=== PATIENT | female | born 1985 | race Caucasian/White ===

== ENCOUNTER 2017-01-03 12:57 | Emergency (ER) | payer SELFPAY ==
[~2017-01-03 12:57] MED LIST: FIBER SELECT GUMMIES PR; HYCET1 ML PO; IBUPROFEN600 MG PO; PERCOCET1 TA1 PO
--- NOTE | 2017-01-03 14:26 | DIAGNOSTIC IMAGING REPORT ---
PROCEDURE: XR SHOULDER 2 OR MORE VW-RIGHT INDICATION: TRAUMA/INJURY TECHNIQUE: Four views. COMPARISON: None. FINDINGS: There is a type 1, AC joint separation. In the shoulder there is internal and external rotation without fracture or dislocation. IMPRESSION: 1. Acromioclavicular joint separation, type 1
--- NOTE | 2017-01-03 14:34 | ED NURSING NOTES ---
Clinical Report - Nurses [facility] [address] [place] [address] 01/03/2017 12:58 Patient: BRIJESH GABRIEL TRIAGE Triage time 1300. Acuity: LEVEL 5. Chief Complaint: INJURY TO RIGHT SHOULDER. Alert. No acute distress. --13:15 Jamaica Vasquez 13:11 01/03/17. BP: 135/68. HR: 63. RR: 18. O2 saturation: 100%. Temp: 98.4 F. Pain level now 04/28. --13:15 Jamaica Vasquez. Weight: 113.3 kg. Height/Length: 65 inches. BMI: 41.6. --13:11 Jamaica Vasquez. Medications None. --13:13 Jamaica Vasquez. Allergies Hydrocodone. --13:13 Jamaica Vasquez. History Arrived by private vehicle. Historian: patient. Accompanied by family. This occurred (1 weeks ago). Mechanism of injury: fell. Treatment KIER DRIER: Ice and took ibuprofen. SOCIAL HX: Current every day heavy tobacco smoker, start date 1998 (cigarette)- 1 pack per day. Occasional alcohol use. History of drug use: marijuana. --13:15 Jamaica Vasquez. PROBLEMS: Biliary Colic. Cholelithiasis. Urinary Calculi. Gallstone(s). Endometriosis. Substance Abuse. Pelvic Pain. Hypertension. Strep Throat. Nephrolithiasis. Uterine Fibroid. Dental Caries. LNMP - Last Normal Menstrual Period. --13:14 Jmaaica Vasquez. ADDITIONAL SURGERIES: . Hysterectomy. Tubal Ligation. --13:14 Jamaica Vasquez. Interventions ID band on patient. To treatment room. --13:15 Jamaica Vasquez. PHYSICAL ASSESSMENT Ambulatory to room. GENERAL / NEURO / PSYCH: Oriented X 4. Alert. Appears in no acute distress. EXTREMITIES: Capillary refill is less than 2 seconds in the extremities. Extremity pulses are within normal limits. Extremities exhibit normal ROM. Neuro-vascular status intact to the extremity. Right shoulder: tenderness. Limited ROM due to pain (sling on from home). SKIN: Skin intact. Skin is warm and dry. --13:16 Jamaica Vasquez. DISPOSITION / DISCHARGE Departure time: 1440. Condition at departure: unchanged and stable. No learning barriers present. Discharge instructions provided and reviewed with the patient. Reviewed medication(s). Patient verbalized understanding. Written instructions provided in Lao. The patient was discharged by the nurse practitioner. She was discharged home and accompanied by spouse. She left the Emergency Department ambulatory and via private vehicle. Spouse driving. --14:42 Jamaica Vasquez 14:40 01/03/17. BP: 125/74. HR: 84. RR: 16. O2 saturation: 100%. Pain level now 05/28. --14:42 Jamaica Vasquez. Locked/Released at 01/03/2017 14:43 by Jamaica Vasquez,
--- NOTE | 2017-01-03 14:34 | ED ORDER SUMMARY ---
..... Patient: BRIJESH GABRIEL OrderSheet [facility] VisitID: [id number] [address] [place] [address] 31y, F Registration Date/Time: 01/03/2017 ORDER SHEET Weight: 113.3 kg Allergies: Hydrocodone GENERAL ORDERS: Shoulder 2V or more Right Urgent (13:33 01/03/2017 HBivens A.R.N.P.) (Ack 13:38 LNations ER Tech1) (13:43 LNations ER Tech1) MEDICATION ORDERS: IV FLUIDS: ORDER SHEET NOTES: [Electronically signed by Jamaica Vasquez (14:43 01/03/2017)] [Electronically signed by Stayc Rasmussen A.R.N.P. (16:12 01/03/2017)] [Electronically locked/signed by Jamaica Vasquez (14:43 01/03/2017)]
--- NOTE | 2017-01-03 14:34 | ED CLINICAL REPORT ---
Clinical Report - Physicians/Mid Levels [address] [place] [address] 01/03/2017 12:58 Patient: BRIJESH GABRIEL Time Seen: 13:13; initial patient contact, initial documentation, patient care assumed. Arrived- By private vehicle. Historian- patient. HISTORY OF PRESENT ILLNESS Chief Complaint: FALL. Location of injuries- right shoulder. The injury occurred about 1 weeks ago. Fell. The patient complains of moderate pain. No blow to the head, neck pain, loss of consciousness or seizure. Not dazed. (shoulder is popping and clicking with use/movement, taking ibuprofen for pain). REVIEW OF SYSTEMS No numbness, chest pain, difficulty breathing, weakness or abdominal pain. No laceration. She has no pain on weight bearing. All systems otherwise negative, except as recorded above. PAST HISTORY See nurses notes. PROBLEMS: Biliary Colic. Cholelithiasis. Urinary Calculi. Gallstone(s). Endometriosis. Substance Abuse. Pelvic Pain. Hypertension. Strep Throat. Nephrolithiasis. Uterine Fibroid. Dental Caries. LNMP - Last Normal Menstrual Period. --13:14 Jamaica Vasquez. ADDITIONAL SURGERIES: . Hysterectomy. Tubal Ligation. --13:14 Jamaica Vasquez. SOCIAL HISTORY Heavy tobacco smoker. Occasional alcohol use. History of occasional drug use: marijuana. No recent travel. Is a local resident. FAMILY HISTORY No significant family medical history. ADDITIONAL NOTES The nursing notes have been reviewed with agreement regarding the chief complaint, HPI, ROS, PMH and patient medications and allergies. PHYSICAL EXAM Vital Signs: 01/03/2017 13:11 BP: 135/68. HR: 63. RR: 18. O2 saturation: 100%. Temp: 98.4 F. Have been reviewed as normal and appear to be correct. Appearance: Alert. Oriented X3. No acute distress. Head: Head non-tender. No swelling of head. Eyes: Pupils equal, round and reactive to light. EOM intact. ENT: No dental injury. Pharynx normal. Neck: Painless ROM. Non-tender. Respiratory: Chest nontender. Back: No tenderness. ROM normal. Skin: Skin intact. Skin warm and dry. Normal skin color. Normal skin turgor. Extremities: Abnormal inspection. Extremities not atraumatic. Right shoulder: mild tenderness. Neurovascular intact distally. (mild tenderness everywhere I palpate shoulder, could not localize injury spot). No erythema, swelling, laceration, abrasion or ecchymosis. No puncture wound, foreign body or deformity. No joint effusion or limitation in ROM. Pelvis stable. No lower extremity edema. Neuro: Oriented X 3. No motor deficit. No sensory deficit. LABS, X-RAYS, AND EKG X-Rays: Right shoulder. Rt Shoulder X-ray: (IMPRESSION: 1. Acromioclavicular joint separation, type 1 Electronically Final signed by:Micha Aguilar MD 01/03/2017 2:30:31 PM). The X-rays were interpreted by the radiologist and contemporaneously by me. Interpretation time: 14:32. PROGRESS AND PROCEDURES Course of Care: pt has brief kathy, nothing alarming, see report for full details. Patient counseled in person regarding the patient's stable condition, test results and diagnosis. 14:32. Differential Diagnosis: I considered fracture, stress fracture, sprain, hyperextension, dislocation, rotator cuff tear, acromioclavicular separation, soft tissue injury, tendonitis and bursitis as a possible cause of upper extremity pain in this patient. This is a partial list of diagnoses considered. Above considerations are based on history, physical exam and X-Ray data. Differential diagnosis was discussed with patient. Disposition: Discharged home in good and unchanged condition (14:34). Condition: good and stable. CLINICAL IMPRESSION Muscle strain of the right rotator cuff at the shoulder. Type I separation of the right AC joint. No displacement of the right AC joint. Fall on same level by slipping. INSTRUCTIONS Warnings: GENERAL WARNINGS: Return or contact your physician immediately if your condition worsens or changes unexpectedly, if not improving as expected, or if other problems arise. SPECIFICALLY, return if you develop numbness or incontinence of feces (loss of bowel control) or urine (loss of bladder control). Prescription Medications: Naproxen 500 mg tablets: take 1 orally every 12 hours as needed for pain. Dispense twenty (20). No refills. Understanding of the discharge instructions verbalized by patient. Follow-up with: Francisco Damon MD, Orthopedic Surgeon, , [id number], , [place], [id number] Follow up in about one week as needed. Call for an appointment. Summary of care provided to patient. (Electronically signed by Stacy Rasmussen A.R.NJosiah 01/03/2017 16:12)
--- NOTE | 2017-01-03 14:34 | ED CLINICAL REPORT ---
Clinical Report - Physicians/Mid Levels [facility] [address] [place] [address] 01/03/2017 12:58 Patient: BRIJESH GABRIEL Time Seen: 13:13; initial patient contact, initial documentation, patient care assumed. Arrived- By private vehicle. Historian- patient. HISTORY OF PRESENT ILLNESS Chief Complaint: FALL. Location of injuries- right shoulder. The injury occurred about 1 weeks ago. Fell. The patient complains of moderate pain. No blow to the head, neck pain, loss of consciousness or seizure. Not dazed. (shoulder is popping and clicking with use/movement, taking ibuprofen for pain). REVIEW OF SYSTEMS No numbness, chest pain, difficulty breathing, weakness or abdominal pain. No laceration. She has no pain on weight bearing. All systems otherwise negative, except as recorded above. PAST HISTORY See nurses notes. PROBLEMS: Biliary Colic. Cholelithiasis. Urinary Calculi. Gallstone(s). Endometriosis. Substance Abuse. Pelvic Pain. Hypertension. Strep Throat. Nephrolithiasis. Uterine Fibroid. Dental Caries. LNMP - Last Normal Menstrual Period. --13:14 Jamaica Vasquez. ADDITIONAL SURGERIES: . Hysterectomy. Tubal Ligation. --13:14 Jamaica Vasquez. SOCIAL HISTORY Heavy tobacco smoker. Occasional alcohol use. History of occasional drug use: marijuana. No recent travel. Is a local resident. FAMILY HISTORY No significant family medical history. ADDITIONAL NOTES The nursing notes have been reviewed with agreement regarding the chief complaint, HPI, ROS, PMH and patient medications and allergies. PHYSICAL EXAM Vital Signs: 01/03/2017 13:11 BP: 135/68. HR: 63. RR: 18. O2 saturation: 100%. Temp: 98.4 F. Have been reviewed as normal and appear to be correct. Appearance: Alert. Oriented X3. No acute distress. Head: Head non-tender. No swelling of head. Eyes: Pupils equal, round and reactive to light. EOM intact. ENT: No dental injury. Pharynx normal. Neck: Painless ROM. Non-tender. Respiratory: Chest nontender. Back: No tenderness. ROM normal. Skin: Skin intact. Skin warm and dry. Normal skin color. Normal skin turgor. Extremities: Abnormal inspection. Extremities not atraumatic. Right shoulder: mild tenderness. Neurovascular intact distally. (mild tenderness everywhere I palpate shoulder, could not localize injury spot). No erythema, swelling, laceration, abrasion or ecchymosis. No puncture wound, foreign body or deformity. No joint effusion or limitation in ROM. Pelvis stable. No lower extremity edema. Neuro: Oriented X 3. No motor deficit. No sensory deficit. LABS, X-RAYS, AND EKG X-Rays: Right shoulder. Rt Shoulder X-ray: (IMPRESSION: 1. Acromioclavicular joint separation, type 1 Electronically Final signed by:Micha Aguilar MD 01/03/2017 2:30:31 PM). The X-rays were interpreted by the radiologist and contemporaneously by me. Interpretation time: 14:32. PROGRESS AND PROCEDURES Course of Care: pt has brief kathy, nothing alarming, see report for full details. Patient counseled in person regarding the patient's stable condition, test results and diagnosis. 14:32. Differential Diagnosis: I considered fracture, stress fracture, sprain, hyperextension, dislocation, rotator cuff tear, acromioclavicular separation, soft tissue injury, tendonitis and bursitis as a possible cause of upper extremity pain in this patient. This is a partial list of diagnoses considered. Above considerations are based on history, physical exam and X-Ray data. Differential diagnosis was discussed with patient. Disposition: Discharged home in good and unchanged condition (14:34). Condition: good and stable. CLINICAL IMPRESSION Muscle strain of the right rotator cuff at the shoulder. Type I separation of the right AC joint. No displacement of the right AC joint. Fall on same level by slipping. INSTRUCTIONS Warnings: GENERAL WARNINGS: Return or contact your physician immediately if your condition worsens or changes unexpectedly, if not improving as expected, or if other problems arise. SPECIFICALLY, return if you develop numbness or incontinence of feces (loss of bowel control) or urine (loss of bladder control). Prescription Medications: Naproxen 500 mg tablets: take 1 orally every 12 hours as needed for pain. Dispense twenty (20). No refills. Understanding of the discharge instructions verbalized by patient. Follow-up with: Francisco Damon MD, Orthopedic Surgeon, , [id number], , [place], [phone] Follow up in about one week as needed. Call for an appointment. Summary of care provided to patient. (Electronically signed by Stacy Rasmussen A.R.NJosiah 01/03/2017 16:12)
--- NOTE | 2017-01-03 14:34 | ED ORDER SUMMARY ---
..... Patient: BRIJESH GABRIEL OrderSheet [facility] VisitID: [id number] [address] [place] [address] 31y, F Registration Date/Time: 01/03/2017 ORDER SHEET Weight: 113.3 kg Allergies: Hydrocodone GENERAL ORDERS: Shoulder 2V or more Right Urgent (13:33 01/03/2017 HBivens A.R.N.P.) (Ack 13:38 LNations ER Tech1) (13:43 LNations ER Tech1) MEDICATION ORDERS: IV FLUIDS: ORDER SHEET NOTES: [Electronically signed by Jamaica Vasquez (14:43 01/03/2017)] [Electronically signed by Stacy Rasmussen A.R.N.P. (16:12 01/03/2017)] [Electronically locked/signed by Jamaica Vasquez (14:43 01/03/2017)]
--- NOTE | 2017-01-03 14:34 | ED NURSING NOTES ---
Clinical Report - Nurses [facility] [address] [place] [address] 01/03/2017 12:58 Patient: BRIJESH GABRIEL TRIAGE Triage time 1300. Acuity: LEVEL 5. Chief Complaint: INJURY TO RIGHT SHOULDER. Alert. No acute distress. --13:15 Jamaica Vasquez 13:11 01/03/17. BP: 135/68. HR: 63. RR: 18. O2 saturation: 100%. Temp: 98.4 F. Pain level now 04/28. --13:15 Jamaica Vasquez. Weight: 113.3 kg. Height/Length: 65 inches. BMI: 41.6. --13:11 Jamaica Vasquez. Medications None. --13:13 Jamaica Vasquez. Allergies Hydrocodone. --13:13 Jamaica Vasquez. History Arrived by private vehicle. Historian: patient. Accompanied by family. This occurred (1 weeks ago). Mechanism of injury: fell. Treatment MARBLE MASON: Ice and took ibuprofen. SOCIAL HX: Current every day heavy tobacco smoker, start date 1998 (cigarette)- 1 pack per day. Occasional alcohol use. History of drug use: marijuana. --13:15 Jamaica Vasquez. PROBLEMS: Biliary Colic. Cholelithiasis. Urinary Calculi. Gallstone(s). Endometriosis. Substance Abuse. Pelvic Pain. Hypertension. Strep Throat. Nephrolithiasis. Uterine Fibroid. Dental Caries. LNMP - Last Normal Menstrual Period. --13:14 Jamaica Vasquez. ADDITIONAL SURGERIES: . Hysterectomy. Tubal Ligation. --13:14 Jamaica Vasquez. Interventions ID band on patient. To treatment room. --13:15 Jamaica Vasquez. PHYSICAL ASSESSMENT Ambulatory to room. GENERAL / NEURO / PSYCH: Oriented X 4. Alert. Appears in no acute distress. EXTREMITIES: Capillary refill is less than 2 seconds in the extremities. Extremity pulses are within normal limits. Extremities exhibit normal ROM. Neuro-vascular status intact to the extremity. Right shoulder: tenderness. Limited ROM due to pain (sling on from home). SKIN: Skin intact. Skin is warm and dry. --13:16 Jamaica Vasquez. DISPOSITION / DISCHARGE Departure time: 1440. Condition at departure: unchanged and stable. No learning barriers present. Discharge instructions provided and reviewed with the patient. Reviewed medication(s). Patient verbalized understanding. Written instructions provided in Nepali. The patient was discharged by the nurse practitioner. She was discharged home and accompanied by spouse. She left the Emergency Department ambulatory and via private vehicle. Spouse driving. --14:42 Jamaica Vasquez 14:40 01/03/17. BP: 125/74. HR: 84. RR: 16. O2 saturation: 100%. Pain level now 05/28. --14:42 Jamaica Vasquez. Locked/Released at 01/03/2017 14:43 by Jamaica Vasquez,
--- NOTE | 2017-01-03 16:12 | ED MAR SUMMARY ---
..... Medication Administration Record [facility] [address] [place], [place] [id number] Patient: WILLIAMKRYSTLELUCIA BRIJESH Valerio Visit ID: [id number] 31y, F Weight: 113.3 kg Height/Length: 65 in BMI: 41.6 ALLERGIES: Hydrocodone
--- NOTE | 2017-01-03 16:12 | ED MED RECONCILIATION SUMMARY ---
Patient: BRIJESH GABRIEL Medication Reconciliation Report [facility] VisitID: [id number] [address] [place] [address] 31y, F Registration Date/Time: 01/03/2017 Weight: 113.3 kg Height/Length: 65 in. BMI: 41.6 ALLERGIES: Hydrocodone The patient's Home Medications are listed below: NONE. The source(s) of the original Home Medication information: Not obtained. The following Medications were given to the patient in the Emergency Department: None. The following Medications were prescribed to the patient: Naproxen 500 mg tablets: take 1 orally every 12 hours as needed for pain. Dispense twenty (20). No refills. -- Stacy Rasmussen A.R.N.P.
--- NOTE | 2017-01-03 16:12 | ED MED RECONCILIATION SUMMARY ---
Patient: BRIJESH GABRIEL Medication Reconciliation Report [facility] VisitID: [id number] [address] [place] [address] 31y, F Registration Date/Time: 01/03/2017 Weight: 113.3 kg Height/Length: 65 in. BMI: 41.6 ALLERGIES: Hydrocodone The patient's Home Medications are listed below: NONE. The source(s) of the original Home Medication information: Not obtained. The following Medications were given to the patient in the Emergency Department: None. The following Medications were prescribed to the patient: Naproxen 500 mg tablets: take 1 orally every 12 hours as needed for pain. Dispense twenty (20). No refills. -- Stacy Rasmussen A.R.N.P.
--- NOTE | 2017-01-03 16:12 | ED MAR SUMMARY ---
..... Medication Administration Record [facility] [address] [place] [id number] Patient: WILLIAMKRYSTLELUCIA BRIJESH Valerio Visit ID: [id number] 31y, F Weight: 113.3 kg Height/Length: 65 in BMI: 41.6 ALLERGIES: Hydrocodone
--- NOTE | 2017-01-03 16:12 | ED DISCHARGE INSTRUCTIONS ---
Patient: BRIJESH GABRIEL General Instructions [facility] VisitID: [id number] [address] [place] [address] 31y, F Registration Date/Time: 01/03/2017 Muscle strain of the right rotator cuff at the shoulder. Type I separation of the right AC joint. No displacement of the right AC joint. Fall on same level by slipping. INSTRUCTIONS Warnings: GENERAL WARNINGS: Return or contact your physician immediately if your condition worsens or changes unexpectedly, if not improving as expected, or if other problems arise. SPECIFICALLY, return if you develop numbness or incontinence of feces (loss of bowel control) or urine (loss of bladder control). Prescription Medications: Naproxen 500 mg tablets: take 1 orally every 12 hours as needed for pain. Dispense twenty (20). No refills. Understanding of the discharge instructions verbalized by patient. Follow-up with: Francisco Damon MD, Orthopedic Surgeon, , [address], , [place], [id number] Follow up in about one week as needed. Call for an appointment. Summary of care provided to patient. ADDITIONAL INFORMATION Mechanical Fall You have had a fall today. It appears that the cause is mechanical. That means that you slipped, tripped or lost your balance. If your fall had been due to fainting or a seizure, further tests would be required. Home Care: Rest today and resume your normal activities when you are feeling back to normal. If you were injured during the fall, follow the advice from your doctor regarding care of your injury. You may use acetaminophen (Tylenol) or ibuprofen (Motrin, Advil) to control pain, unless another pain medicine was prescribed. [NOTE: If you have chronic liver or kidney disease or ever had a stomach ulcer or GI bleeding, talk with your doctor before using these medicines.] Fall Prevention: Was there anything that caused your fall that can be fixed, removed, or replaced? Make your home safe by keeping walkways clear of objects you may trip over. Use non-slip pads under rugs. Do not walk in poorly lit areas. Do not stand on chairs or wobbly ladders. Use caution when reaching overhead or looking upward. This position can cause a loss of balance. Be sure your shoes fit properly, have non-slip bottoms and are in good condition. Be cautious when going up and down curbs, and walking on uneven sidewalks. If your balance is poor, consider using a cane or walker. Stay as active as you can. Balance, flexibility, strength, and endurance all come from exercise. They all play a role in preventing falls. Follow Up with your doctor or as advised by our staff. Get Prompt Medical Attention if any of the following occur: Repeated mechanical falls, or unexplained falls Dizziness, fainting or seizure Severe headache Chest pain or shortness of breath Palpitations (very rapid or very slow or irregular heartbeat) Blood in vomit, stools (black or red color) Weakness of an arm or leg or one side of the face Difficulty with speech or vision Muscle Strain,Extremity A MUSCLE STRAIN is a stretching and tearing of muscle fibers. This causes pain, especially with motion of that muscle. There may also be some swelling and bruising. Home Care: 1) Keep the injured area raised to reduce pain and swelling. This is especially important during the first 48 hours. 2) Make an ice pack (ice cubes in a plastic bag, wrapped in a towel) and apply for 20 minutes every 1-2 hours the first day. You should continue with ice packs 3-4 times a day for the second and third days. Unless otherwise instructed, on the fourth day you may begin hot soaks or hot packs (small towel soaked in hot water) 3-4 times a day while you gently exercise the involved area. 3) You may use acetaminophen (Tylenol) or ibuprofen (Motrin, Advil) to control pain, unless another medicine was prescribed. [ NOTE : If you have chronic liver or kidney disease or ever had a stomach ulcer or GI bleeding, talk with your doctor before using these medicines.] 4) For LEG STRAINS: If CRUTCHES have been recommended, do not bear full weight on the injured leg until you can do so without pain. You may return to sports when you are able to hop and run on the injured leg without pain. Follow Up with your doctor or this facility if you are not improving within the next five days. Get Prompt Medical Attention if any of the following occur: -- Fingers or toes become swollen, cold, blue, numb or tingly -- Pain or swelling increases Sprain, A-C Joint The A-C JOINT holds the collar bone (clavicle) to the shoulder. A sprain of this joint is a tearing of the ligaments that hold the bones together. The tear may be partial or complete. An A-C sprain will take about 36 weeks to heal, depending on how severe it is. A "complete A-C ligament tear" (also called "A-C separation") will allow the collar bone to rise up, causing a noticeable bump on the shoulder top. Since the ligament heals in this position, the bump is permanent. It is possible to have surgery to correct the appearance, although normal shoulder function will return even without surgery. This injury is usually treated with a sling or "shoulder immobilizer". Once healed, you can expect full recovery of shoulder function. Home care The following guidelines will help you care for your sprain at home: Use the sling when awake until your next appointment. If the sling becomes loose, adjust it so that your forearm is level with the ground, and the shoulder feels well supported. You may remove the sling to bathe and remove it at night to sleep. Apply an ice pack (ice cubes in a plastic bag, wrapped in a towel) over the injured area for 20 minutes every 12 hours the first day for pain relief. Continue this 34 times a day until the pain and swelling goes away. You may use acetaminophen or ibuprofen to control pain, unless another pain medicine was prescribed.If you have chronic liver or kidney disease or ever had a stomach ulcer or GI bleeding, talk with your doctor before using these medicines. Shoulder joints become stiff if left in a sling for too long. Range of motion exercises should usually be started within the first ten days after injury. Consult your doctor on what type of exercises to do and how soon to start. The sling may be removed to shower or bathe. Follow-up care Any X-rays you had today dont show any broken bones, breaks, or fractures. Sometimes fractures dont show up on the first X-ray. Bruises and sprains can sometimes hurt as much as a fracture. These injuries can take time to heal completely. If your symptoms dont improve or they get worse, talk with your doctor. You may need a repeat X-ray. When to seek medical care Get prompt medical attention if any of the following occur: Pain or swelling or bruising increases Fingers become cold, blue, numb or tingly Naproxen Sodium Oral tablet What is this medicine? NAPROXEN (na PROX en) is a non-steroidal anti-inflammatory drug (NSAID). It is used to reduce swelling and to treat pain. This medicine may be used for dental pain, headache, or painful monthly periods. It is also used for painful joint and muscular problems such as arthritis, tendinitis, bursitis, and gout. How should I use this medicine? Take this medicine by mouth with a glass of water. Follow the directions on the prescription label. Take it with food if your stomach gets upset. Try to not lie down for at least 10 minutes after you take it. Take your medicine at regular intervals. Do not take your medicine more often than directed. Long-term, continuous use may increase the risk of heart attack or stroke. A special MedGuide will be given to you by the pharmacist with each prescription and refill. Be sure to read this information carefully each time. Talk to your filler picker regarding the use of this medicine in children. Special care may be needed. What side effects may I notice from receiving this medicine? Side effects that you should report to your doctor or health career development associate as soon as possible: black or bloody stools, blood in the urine or vomit blurred vision chest pain difficulty breathing or wheezing nausea or vomiting severe stomach pain skin rash, skin redness, blistering or peeling skin, hives, or itching slurred speech or weakness on one side of the body swelling of eyelids, throat, lips unexplained weight gain or swelling unusually weak or tired yellowing of eyes or skin Side effects that usually do not require medical attention (report to your doctor or health career development associate if they continue or are bothersome): constipation headache heartburn What may interact with this medicine? alcohol aspirin cidofovir diuretics lithium methotrexate other drugs for inflammation like ketorolac or prednisone pemetrexed probenecid warfarin What if I miss a dose? If you miss a dose, take it as soon as you can. If it is almost time for your next dose, take only that dose. Do not take double or extra doses. Where should I keep my medicine? Keep out of the reach of children. Store at room temperature between 15 and 30 degrees C (59 and 86 degrees F). Keep container tightly closed. Throw away any unused medicine after the expiration date. What should I tell my health care provider before I take this medicine? They need to know if you have any of these conditions: asthma cigarette smoker drink more than 3 alcohol containing drinks a day heart disease or circulation problems such as heart failure or leg edema (fluid retention) high blood pressure kidney disease liver disease stomach bleeding or ulcers an unusual or allergic reaction to naproxen, aspirin, other NSAIDs, other medicines, foods, dyes, or preservatives or trying to get breast-feeding What should I watch for while using this medicine? Tell your doctor or health career development associate if your pain does not get better. Talk to your doctor before taking another medicine for pain. Do not treat yourself. This medicine does not prevent heart attack or stroke. In fact, this medicine may increase the chance of a heart attack or stroke. The chance may increase with longer use of this medicine and in people who have heart disease. If you take aspirin to prevent heart attack or stroke, talk with your doctor or health career development associate. Do not take other medicines that contain aspirin, ibuprofen, or naproxen with this medicine. Side effects such as stomach upset, nausea, or ulcers may be more likely to occur. Many medicines available without a prescription should not be taken with this medicine. This medicine can cause ulcers and bleeding in the stomach and intestines at any time during treatment. Do not smoke cigarettes or drink alcohol. These increase irritation to your stomach and can make it more susceptible to damage from this medicine. Ulcers and bleeding can happen without warning symptoms and can cause . You may get drowsy or dizzy. Do not drive, use machinery, or do anything that needs mental alertness until you know how this medicine affects you. Do not stand or sit up quickly, especially if you are an older patient. This reduces the risk of dizzy or fainting spells. This medicine can cause you to bleed more easily. Try to avoid damage to your teeth and gums when you brush or floss your teeth. You have been given the following additional information: Fall, Mechanical Muscle Strain, Extremity AC Joint Sprain Naproxen Sodium Oral tablet (Electronically signed by Stacy Rasmussen A.R.N.P. 01/03/2017 16:12)
== END 2017-01-03 14:40 | disposition home or self-care (01) ==
LOC: ED SRH 12:57
DX: S46.011A Strain of muscle(s) and tendon(s) of the rotator cuff of right shoulder, initial encounter (principal); S43.101A Unspecified dislocation of right acromioclavicular joint, initial encounter; W01.0XXA Fall on same level from slipping, tripping and stumbling without subsequent striking against object, initial encounter; Y99.9 Unspecified external cause status; Y93.9 Activity, unspecified; Y92.9 Unspecified place or not applicable; I10 Essential (primary) hypertension

== ENCOUNTER 2017-06-01 13:29 | Emergency (ER) | payer SELFPAY ==
--- NOTE | 2017-06-01 14:09 | DIAGNOSTIC IMAGING REPORT ---
PROCEDURE: XR ANKLE 3 OR 4 VIEWS - LEFT INDICATION: TRAUMA/INJURY TECHNIQUE: Four views. COMPARISON: None. FINDINGS: Osseous structures and joint spaces are normal. IMPRESSION: 1. Normal left ankle.
--- NOTE | 2017-06-01 14:39 | ED CLINICAL REPORT ---
Clinical Report - Physicians/Mid Levels [facility] [address] [place] [address] 06/01/2017 13:30 Patient: BRIJESH GABRIEL Time Seen: 13:41; initial patient contact, initial documentation, patient care assumed. Arrived- By private vehicle. Historian- patient. HISTORY OF PRESENT ILLNESS Chief Complaint: Injury to the left ankle. The injury happened about 2 days ago. The patient sustained a twisting injury. Fell while walking and landed on the ground; slipped. Occurred at home. Patient is experiencing moderate pain. Patient denies injury to the head or neck. No other injury. REVIEW OF SYSTEMS The patient complains of pain on weight bearing. She has had swelling. No tingling, weakness, numbness, suspected foreign body or skin laceration. All systems otherwise negative, except as recorded above. PAST HISTORY See nurses notes. PROBLEMS: AC Joint Separation. Myofascial Strain. Biliary Colic. Cholelithiasis. Urinary Calculi. Gallstone(s). Endometriosis. Substance Abuse. Pelvic Pain. Abdominal Pain. Hypertension. Pharyngitis. Strep Throat. Immunizations. Hematuria. Nephrolithiasis. Uterine Fibroid. Contusion. Dental Caries. LNMP - Last Normal Menstrual Period. --13:41 Daquan Gardner RBipinN. ADDITIONAL SURGERIES: Cholecystectomy. . Hysterectomy. Oophorectomy. Tubal Ligation. --13:41 Daquan Gardnre RBipinN. SOCIAL HISTORY Heavy tobacco smoker. Occasional alcohol use. History of occasional drug use: marijuana. No recent travel. Is a local resident. FAMILY HISTORY No significant family medical history. ADDITIONAL NOTES The nursing notes have been reviewed with agreement regarding the chief complaint, HPI, ROS, PMH and patient medications and allergies. PHYSICAL EXAM Vital Signs: 06/01/2017 13:35 BP: 155/108. HR: 88. RR: 16. O2 saturation: 99%. Temp: 99.3 F. Pain level now: 8/10. Have been reviewed as abnormal and appear to be correct. Hypertensive. Heart rate normal. Respiratory rate normal. Temperature normal. Oxygen saturation normal. Appearance: Alert. Oriented X3. No acute distress. Head: Head atraumatic. Eyes: Pupils equal, round and reactive to light. Eyes normal inspection. Respiratory: No respiratory distress. Skin: Skin intact. Skin warm and dry. Extremities: Ankle injury present. Left ankle: mild tenderness and swelling localized to the anterior ankle. Limited ROM secondary to pain (diminished plantar flexion, dorsiflexion, inversion and eversion). Neurovascular intact distally. No ligamentous laxity present. No joint effusion. No erythema, laceration, abrasion, ecchymosis or puncture wound. No foreign body or deformity. No foot injury. Foot and ankle exam otherwise negative. Extremities otherwise negative. Gait: Abnormal gait. Limping gait. Neuro, Vascular and Tendons: Vascular status intact. Sensation intact. Motor intact. Tendon function intact. Neuro: Oriented X 3. No motor deficit. No sensory deficit. Note: isolated injury to ankle. LABS, X-RAYS, AND EKG X-Rays: Left ankle negative. Lt Ankle X-ray: (IMPRESSION: 1. Normal left ankle. Electronically Final signed by:Micha Aguilar MD 06/01/2017 2:09:59 PM). The X-rays were interpreted by the radiologist and contemporaneously by me. PROGRESS AND PROCEDURES Course of Care: pt politely declined pain med offer. Patient counseled in person regarding the patient's stable condition, test results and diagnosis. 14:21. Differential Diagnosis: Other possible considerations: ankle fx vs sprain. Above considerations are based on history, physical exam and X-Ray data. Differential diagnosis was discussed with patient. Disposition: Discharged home in good and improved condition (14:39). Condition: good and stable. CLINICAL IMPRESSION Sprain of the tibiofibular ligament of the left ankle. Fall on same level by slipping. INSTRUCTIONS Wear elastic wrap (Mil wrap) as directed for one weeks until better. Warnings: GENERAL WARNINGS: Return or contact your physician immediately if your condition worsens or changes unexpectedly, if not improving as expected, or if other problems arise. Specifically return if problem worsens. Prescription Medications: Ultram 50 mg tablets: take 1-2 orally every 6 hours as needed for pain. Dispense twenty (20). No refills. Substitution is permissible. Follow-up: Follow up with your doctor in about one week as needed. Call for an appointment. Summary of care provided to patient. Screening today revealed the patient's blood pressure to be in the hypertensive range. The patient should follow up with a primary care provider for blood pressure management. Understanding of the discharge instructions verbalized by patient. (Electronically signed by Stacy Rasmussen A.R.N.P. 06/01/2017 17:56)
--- NOTE | 2017-06-01 14:39 | ED ORDER SUMMARY ---
..... Patient: BRIJESH GABRIEL OrderSheet [facility] VisitID: [id number] [place] [address] 31y, F Registration Date/Time: 06/01/2017 ORDER SHEET Weight: 108.8 kg (stated) Allergies: Vicodin, Silicone GENERAL ORDERS: Ankle 3 or 4V Left Urgent (13:45 06/01/2017 HBivens A.R.N.P.) (Ack 13:46 Lena) (14:47 Bala R.N.) Mil Wrap (14:38 06/01/2017 HBivens A.R.N.P.) (14:47 Bala R.N.) MEDICATION ORDERS: IV FLUIDS: ORDER SHEET NOTES: [Electronically signed by Daquan Gardner R.N. (15:17 06/01/2017)] [Electronically signed by Stacy Rasmussen.R.N.P. (17:56 06/01/2017)] [Electronically locked/signed by Daquan Gardner R.N. (15:17 06/01/2017)]
--- NOTE | 2017-06-01 14:39 | ED ORDER SUMMARY ---
..... Patient: BRIJESH GABRIEL OrderSheet [facility] VisitID: [id number] [place] [address] 31y, F Registration Date/Time: 06/01/2017 ORDER SHEET Weight: 108.8 kg (stated) Allergies: Vicodin, Silicone GENERAL ORDERS: Ankle 3 or 4V Left Urgent (13:45 06/01/2017 HBivens A.R.N.P.) (Ack 13:46 Lena) (14:47 Bala R.N.) Mil Wrap (14:38 06/01/2017 HBivens A.R.N.P.) (14:47 Bala R.N.) MEDICATION ORDERS: IV FLUIDS: ORDER SHEET NOTES: [Electronically signed by Daquan Gardner R.N. (15:17 06/01/2017)] [Electronically signed by Stacy Rasmussen.R.N.P. (17:56 06/01/2017)] [Electronically locked/signed by Daquan Gardner R.N. (15:17 06/01/2017)]
--- NOTE | 2017-06-01 14:39 | ED NURSING NOTES ---
Clinical Report - Nurses [facility] [address] [place] [address] 06/01/2017 13:30 Patient: BRIJESH GABRIEL TRIAGE Triage time 13:35 Jun 01 2017. Acuity: LEVEL 3. Alert. MARCELL COMA SCORE: Marcell Coma Scale: 15- eyes open spontaneously (4); best verbal response- oriented x 4 (5); best motor response- obeys commands (6). --13:47 Daquan Gardner R.N. 13:35 06/01/17. BP: 155/108. HR: 88. RR: 16. O2 saturation: 99%. Temp: 99.3 F (oral). Pain level now: 8/10. Additional comments: L Ankle pain. --13:47 Daquan Gardner R.N. Weight: 108.8 kg stated. Height/Length: 65 inches Per Patient. BMI: 40. --13:36 Daquan Gardner R.N. Medications None. --15:17 Daquan Gardner R.N. Allergies Vicodin. --13:40 Daquan Gardner R.N. Silicone. --13:40 Daquan Gardner R.N. Medication/allergy information source: the patient. --13:47 Daquan Gardner R.N. History Arrived by private vehicle. Historian: patient. Accompanied by spouse. [facility] physician ([facility] ( (L) Ankle Pain after slipping on a hillside while walking. Pt states that her weight came down on the ankle as she fell and she heard a loud "pop."). This occurred (about 2 days ago). Mechanism of injury: sustained a twisting injury. She has had tingling,, trouble walking and weakness. Treatment PERSONNEL ASSOCIATE: Ice. None. Took ibuprofen. PAST MEDICAL HX: Tetanus status: up-to-date. Immunizations: status is unknown. The patient has had a hysterectomy. Denies current . SOCIAL HX: Heavy tobacco smoker (cigarette)- 1 pack per day. Alcohol use; consumes two wine weekly. History of occasional drug use. No infectious disease exposure. ABUSE ASSESSMENT: No report of abuse. FALL RISK ASSESSMENT: Fall risk assessment completed. No fall risk identified. NUTRITIONAL RISK ASSESSMENT: The nutritional risk assessment revealed no deficiencies. FUNCTIONAL ASSESSMENT: Functional assessment: no impairments noted. LEARNING NEEDS ASSESSMENT: The learning needs assessment revealed no barriers. SKIN INTEGRITY ASSESSMENT: Skin integrity risk assessment completed. No skin integrity risk identified. --13:47 Daquan Gardner R.N. PROBLEMS: AC Joint Separation. Myofascial Strain. Biliary Colic. Cholelithiasis. Urinary Calculi. Gallstone(s). Endometriosis. Substance Abuse. Pelvic Pain. Abdominal Pain. Hypertension. Pharyngitis. Strep Throat. Immunizations. Hematuria. Nephrolithiasis. Uterine Fibroid. Contusion. Dental Caries. LNMP - Last Normal Menstrual Period. --13:41 Daquan Gardner R.N. ADDITIONAL SURGERIES: Cholecystectomy. . Hysterectomy. Oophorectomy. Tubal Ligation. --13:41 Daquan Gardner R.N. Interventions ID band on patient. To treatment room. --13:47 Daquan Gardner R.N. PHYSICAL ASSESSMENT Ambulatory to room. GENERAL / NEURO / PSYCH: Oriented X 4. Alert. Appears in no acute distress. EXTREMITIES: Limited ROM present in the left ankle. Capillary refill is less than 2 seconds in the extremities. Extremity pulses are within normal limits. Left ankle: tenderness and swelling. SKIN: Skin intact. Skin is warm and dry. --13:48 Daquan Gardner R.N. NURSING PROGRESS NOTES Cold pack applied to the left ankle. Reassurance given to the patient and patient's family. Patient identifiers checked. Call light placed in reach. Side rails up x 1. Bed placed in lowest position. Brakes of bed on. Patient ready for evaluation- chart flagged and FLAT SURFACER notified. --13:49 Daquan Gardner R.N. Cold pack applied ((L) Ankle). --13:50 Daquan Gardner R.N. 13:55 06/01/17. ( X-ray in room of (L) Ankle). --13:55 Daquan Gardner R.N. 14:50. 4 inch floyd bandage applied to left ankle by tech. --14:52 McQuoid, Renée, ER Tech1. DISPOSITION / DISCHARGE Departure time: 1450. --15:07 Daquan Gardner R.N. 14:45 06/01/17. BP: 119/78. HR: 82. RR: 16. O2 saturation: 96% on room air. Temp: 98.2 F (oral). Pain level now: 03/28. --15:09 Daquna Gardner R.N. 14:50. Condition at departure: improved. No learning barriers present. Discharge instructions provided and reviewed with the patient. Reviewed medication(s) dosing information (prescription given to pt). Treatments reviewed (wear floyd wrap per orders.). Reviewed referral to family practice (in about one week). Patient verbalized understanding. Written instructions provided in [place]. The patient was discharged by the physician. She was discharged home and accompanied by spouse. She left the Emergency Department in a wheelchair and via private vehicle. Spouse driving. --15:14 Daquan Gardner R.N. Locked/Released at 06/01/2017 15:17 by Daquan Gardner R.N.
--- NOTE | 2017-06-01 14:39 | ED NURSING NOTES ---
Clinical Report - Nurses [facility] [address] [place] [address] 06/01/2017 13:30 Patient: BRIJESH GABRIEL TRIAGE Triage time 13:35 Jun 01 2017. Acuity: LEVEL 3. Alert. MARCELL COMA SCORE: Marcell Coma Scale: 15- eyes open spontaneously (4); best verbal response- oriented x 4 (5); best motor response- obeys commands (6). --13:47 Daquan Gardner R.N. 13:35 06/01/17. BP: 155/108. HR: 88. RR: 16. O2 saturation: 99%. Temp: 99.3 F (oral). Pain level now: 8/10. Additional comments: L Ankle pain. --13:47 Daquan Gardner R.N. Weight: 108.8 kg stated. Height/Length: 65 inches Per Patient. BMI: 40. --13:36 Daquan Gardner R.N. Medications None. --15:17 Daquan Gardner R.N. Allergies Vicodin. --13:40 Daquan Gardner R.N. Silicone. --13:40 Daquan Gardner R.N. Medication/allergy information source: the patient. --13:47 Daquan Gardner R.N. History Arrived by private vehicle. Historian: patient. Accompanied by spouse. Primary physician ([facility]). ( (L) Ankle Pain after slipping on a hillside while walking. Pt states that her weight came down on the ankle as she fell and she heard a loud "pop."). This occurred (about 2 days ago). Mechanism of injury: sustained a twisting injury. She has had tingling,, trouble walking and weakness. Treatment INSURANCE RATER: Ice. None. Took ibuprofen. PAST MEDICAL HX: Tetanus status: up-to-date. Immunizations: status is unknown. The patient has had a hysterectomy. Denies current . SOCIAL HX: Heavy tobacco smoker (cigarette)- 1 pack per day. Alcohol use; consumes two wine weekly. History of occasional drug use. No infectious disease exposure. ABUSE ASSESSMENT: No report of abuse. FALL RISK ASSESSMENT: Fall risk assessment completed. No fall risk identified. NUTRITIONAL RISK ASSESSMENT: The nutritional risk assessment revealed no deficiencies. FUNCTIONAL ASSESSMENT: Functional assessment: no impairments noted. LEARNING NEEDS ASSESSMENT: The learning needs assessment revealed no barriers. SKIN INTEGRITY ASSESSMENT: Skin integrity risk assessment completed. No skin integrity risk identified. --13:47 Daquan Gardner R.N. PROBLEMS: AC Joint Separation. Myofascial Strain. Biliary Colic. Cholelithiasis. Urinary Calculi. Gallstone(s). Endometriosis. Substance Abuse. Pelvic Pain. Abdominal Pain. Hypertension. Pharyngitis. Strep Throat. Immunizations. Hematuria. Nephrolithiasis. Uterine Fibroid. Contusion. Dental Caries. LNMP - Last Normal Menstrual Period. --13:41 Daquan Gardner R.N. ADDITIONAL SURGERIES: Cholecystectomy. . Hysterectomy. Oophorectomy. Tubal Ligation. --13:41 Daquan Gardner R.N. Interventions ID band on patient. To treatment room. --13:47 Daquan Gardner R.N. PHYSICAL ASSESSMENT Ambulatory to room. GENERAL / NEURO / PSYCH: Oriented X 4. Alert. Appears in no acute distress. EXTREMITIES: Limited ROM present in the left ankle. Capillary refill is less than 2 seconds in the extremities. Extremity pulses are within normal limits. Left ankle: tenderness and swelling. SKIN: Skin intact. Skin is warm and dry. --13:48 Daquan Gardner R.N. NURSING PROGRESS NOTES Cold pack applied to the left ankle. Reassurance given to the patient and patient's family. Patient identifiers checked. Call light placed in reach. Side rails up x 1. Bed placed in lowest position. Brakes of bed on. Patient ready for evaluation- chart flagged and FAMILY EDUCATOR notified. --13:49 Daquan Gardner R.N. Cold pack applied ((L) Ankle). --13:50 Daquan Gardner R.N. 13:55 06/01/17. ( X-ray in room of (L) Ankle). --13:55 Daquan Gardner R.N. 14:50. 4 inch floyd bandage applied to left ankle by tech. --14:52 McQuoid, Renée, ER Tech1. DISPOSITION / DISCHARGE Departure time: 1450. --15:07 Daquan Gardner R.N. 14:45 06/01/17. BP: 119/78. HR: 82. RR: 16. O2 saturation: 96% on room air. Temp: 98.2 F (oral). Pain level now: 03/28. --15:09 Daquan Gardner R.N. 14:50. Condition at departure: improved. No learning barriers present. Discharge instructions provided and reviewed with the patient. Reviewed medication(s) dosing information (prescription given to pt). Treatments reviewed (wear floyd wrap per orders.). Reviewed referral to family practice (in about one week). Patient verbalized understanding. Written instructions provided in Tongan. The patient was discharged by the physician. She was discharged home and accompanied by spouse. She left the Emergency Department in a wheelchair and via private vehicle. Spouse driving. --15:14 Daquan Gardner R.N. Locked/Released at 06/01/2017 15:17 by Daquan Gardner R.N.
--- NOTE | 2017-06-01 17:56 | ED DISCHARGE INSTRUCTIONS ---
Patient: BRIJESH GABRIEL General Instructions [facility] VisitID: [id number] [place] [address] 31y, F Registration Date/Time: 06/01/2017 Sprain of the tibiofibular ligament of the left ankle. Fall on same level by slipping. INSTRUCTIONS Wear elastic wrap (Mil wrap) as directed for one weeks until better. Warnings: GENERAL WARNINGS: Return or contact your physician immediately if your condition worsens or changes unexpectedly, if not improving as expected, or if other problems arise. Specifically return if problem worsens. Prescription Medications: Ultram 50 mg tablets: take 1-2 orally every 6 hours as needed for pain. Dispense twenty (20). No refills. Substitution is permissible. Follow-up: Follow up with your doctor in about one week as needed. Call for an appointment. Summary of care provided to patient. Screening today revealed the patient's blood pressure to be in the hypertensive range. The patient should follow up with a primary care provider for blood pressure management. Understanding of the discharge instructions verbalized by patient. ADDITIONAL INFORMATION Mechanical Fall You have had a fall today. It appears that the cause is mechanical. That means that you slipped, tripped or lost your balance. If your fall had been due to fainting or a seizure, further tests would be required. Home Care: Rest today and resume your normal activities when you are feeling back to normal. If you were injured during the fall, follow the advice from your doctor regarding care of your injury. You may use acetaminophen (Tylenol) or ibuprofen (Motrin, Advil) to control pain, unless another pain medicine was prescribed. [NOTE: If you have chronic liver or kidney disease or ever had a stomach ulcer or GI bleeding, talk with your doctor before using these medicines.] Fall Prevention: Was there anything that caused your fall that can be fixed, removed, or replaced? Make your home safe by keeping walkways clear of objects you may trip over. Use non-slip pads under rugs. Do not walk in poorly lit areas. Do not stand on chairs or wobbly ladders. Use caution when reaching overhead or looking upward. This position can cause a loss of balance. Be sure your shoes fit properly, have non-slip bottoms and are in good condition. Be cautious when going up and down curbs, and walking on uneven sidewalks. If your balance is poor, consider using a cane or walker. Stay as active as you can. Balance, flexibility, strength, and endurance all come from exercise. They all play a role in preventing falls. Follow Up with your doctor or as advised by our staff. Get Prompt Medical Attention if any of the following occur: Repeated mechanical falls, or unexplained falls Dizziness, fainting or seizure Severe headache Chest pain or shortness of breath Palpitations (very rapid or very slow or irregular heartbeat) Blood in vomit, stools (black or red color) Weakness of an arm or leg or one side of the face Difficulty with speech or vision Sprain, Ankle,With X-Ray A sprain is an injury to the ligaments or capsule that holds a joint together. There are no broken bones. Most sprains take from four to six weeks to heal. If the ligament is completely torn (severe sprain), it can take several months to recover. Mild to moderate sprains may be treated with an elastic wrap or an in-shoe splint to provide support and prevent re-injury. A mild sprain may not require any additional support. A severe sprain may require surgery to repair. Home care The following guidelines will help you care for your injury at home: Stay off the injured leg as much as possible until you can walk on it without pain. If you have a lot of pain with walking, crutches or a walker may be prescribed. (These can be rented or purchased at many pharmacies and surgical or orthopedic supply stores). Follow your doctor's advice regarding when to begin bearing weight on that leg. Keep your leg elevated to reduce pain and swelling. When sleeping, place a pillow under the injured leg. When sitting, support the injured leg so it is level with your waist. This is very important during the first 48 hours. Apply an ice pack (ice cubes in a plastic bag, wrapped in a towel) over the injured area for 20 minutes every 12 hours the first day. You can place the ice pack directly over the splint/cast. If you were given a boot, open it to apply the ice pack. Continue with ice packs 34 times a day for the next two days, then as needed for the relief of pain and swelling. You may use acetaminophen or ibuprofen to control pain, unless another pain medicine was prescribed. If you have chronic liver or kidney disease or ever had a stomach ulcer or GI bleeding, talk with your doctor before using these medicines. You may return to sports after healing, when you can run without pain. A sprained ankle is at risk for re-injury during the first six weeks. During that time, protect your ankle with an in-shoe splint that prevents tilting of your ankle from side to side. This is very important if you do active work or play sports during that time. Follow-up care Any X-rays you had today dont show any broken bones, breaks, or fractures. Sometimes fractures dont show up on the first X-ray. Bruises and sprains can sometimes hurt as much as a fracture. These injuries can take time to heal completely. If your symptoms dont improve or they get worse, talk with your doctor. You may need a repeat X-ray. When to seek medical care Get prompt medical attention if any of the following occur: The plaster cast or splint gets wet or soft The fiberglass cast or splint gets wet and does not dry for 24 hours Pain or swelling increases, or redness appears Toes become cold, blue, numb or tingly Re-injure your ankle Mil Wrap An "Mil Bandage" refers to any elastic bandage wrap (2-6" wide). This is used to apply support and compression to an arm or leg. It will help prevent or reduce swelling also. When applying the bandage, it should not be stretched too tightly. A tight Mil Wrap will reduce circulation and cause tingling or numbness in the hand or foot. It may increase the pain under the bandage. If you get these symptoms, remove the wrap and rest the limb. Symptoms should go away within 1-2 hours. Once symptoms go away, reapply the bandage with less stretch. If symptoms do not go away after 1-2 hours with the bandage off, call your doctor or return to this facility promptly. Tramadol Hydrochloride Oral tablet What is this medicine? TRAMADOL (TRA ma dole) is a pain reliever. It is used to treat moderate to severe pain in adults. How should I use this medicine? Take this medicine by mouth with a full glass of water. Follow the directions on the prescription label. If the medicine upsets your stomach, take it with food or milk. Do not take more medicine than you are told to take. Talk to your public relations representative regarding the use of this medicine in children. Special care may be needed. What side effects may I notice from receiving this medicine? Side effects that you should report to your doctor or health manager respiratory care as soon as possible: allergic reactions like skin rash, itching or hives, swelling of the face, lips, or tongue breathing difficulties, wheezing confusion itching light headedness or fainting spells redness, blistering, peeling or loosening of the skin, including inside the mouth seizures Side effects that usually do not require medical attention (report to your doctor or health manager respiratory care if they continue or are bothersome): constipation dizziness drowsiness headache nausea, vomiting What may interact with this medicine? Do not take this medicine with any of the following medications: MAOIs like Carbex, Eldepryl, Marplan, Nardil, and Parnate This medicine may also interact with the following medications: alcohol or medicines that contain alcohol antihistamines benzodiazepines bupropion carbamazepine or oxcarbazepine clozapine cyclobenzaprine digoxin furazolidone linezolid medicines for depression, anxiety, or psychotic disturbances medicines for migraine headache like almotriptan, eletriptan, frovatriptan, naratriptan, rizatriptan, sumatriptan, zolmitriptan medicines for pain like pentazocine, buprenorphine, butorphanol, meperidine, nalbuphine, and propoxyphene medicines for sleep muscle relaxants naltrexone phenobarbital phenothiazines like perphenazine, thioridazine, chlorpromazine, mesoridazine, fluphenazine, prochlorperazine, promazine, and trifluoperazine procarbazine warfarin What if I miss a dose? If you miss a dose, take it as soon as you can. If it is almost time for your next dose, take only that dose. Do not take double or extra doses. Where should I keep my medicine? Keep out of the reach of children. Store at room temperature between 15 and 30 degrees C (59 and 86 degrees F). Keep container tightly closed. Throw away any unused medicine after the expiration date. What should I tell my health care provider before I take this medicine? They need to know if you have any of these conditions: brain tumor depression drug abuse or addiction head injury if you frequently drink alcohol containing drinks kidney disease or trouble passing urine liver disease lung disease, asthma, or breathing problems seizures or epilepsy suicidal thoughts, plans, or attempt; a previous suicide attempt by you or a family member an unusual or allergic reaction to tramadol, codeine, other medicines, foods, dyes, or preservatives or trying to get breast-feeding What should I watch for while using this medicine? Tell your doctor or health manager respiratory care if your pain does not go away, if it gets worse, or if you have new or a different type of pain. You may develop tolerance to the medicine. Tolerance means that you will need a higher dose of the medicine for pain relief. Tolerance is normal and is expected if you take this medicine for a long time. Do not suddenly stop taking your medicine because you may develop a severe reaction. Your body becomes used to the medicine. This does NOT mean you are addicted. Addiction is a behavior related to getting and using a drug for a non-medical reason. If you have pain, you have a medical reason to take pain medicine. Your doctor will tell you how much medicine to take. If your doctor wants you to stop the medicine, the dose will be slowly lowered over time to avoid any side effects. You may get drowsy or dizzy. Do not drive, use machinery, or do anything that needs mental alertness until you know how this medicine affects you. Do not stand or sit up quickly, especially if you are an older patient. This reduces the risk of dizzy or fainting spells. Alcohol can increase or decrease the effects of this medicine. Avoid alcoholic drinks. You may have constipation. Try to have a bowel movement at least every 2 to 3 days. If you do not have a bowel movement for 3 days, call your doctor or health manager respiratory care. Your mouth may get dry. Chewing sugarless gum or sucking hard candy, and drinking plenty of water may help. Contact your doctor if the problem does not go away or is severe. You have been given the following additional information: Fall, Mechanical Sprain, Ankle, With X-Ray Mil Wrap Tramadol Hydrochloride Oral tablet (Electronically signed by Stacy Rasmussen A.R.N.P. 06/01/2017 17:56)
--- NOTE | 2017-06-01 17:56 | ED MED RECONCILIATION SUMMARY ---
Patient: BRIJESH GABRIEL Medication Reconciliation Report [facility] VisitID: [id number] [place] [address] 31y, F Registration Date/Time: 06/01/2017 Weight: 108.8 kg Height/Length: 65 in. BMI: 40.0 ALLERGIES: Silicone, Vicodin The patient's Home Medications are listed below: NONE. The source(s) of the original Home Medication information: patient The following Medications were given to the patient in the Emergency Department: None. The following Medications were prescribed to the patient: Ultram 50 mg tablets: take 1-2 orally every 6 hours as needed for pain. Dispense twenty (20). No refills. Substitution is permissible. -- Stacy Rasmussen A.R.N.P.
--- NOTE | 2017-06-01 17:56 | ED MAR SUMMARY ---
..... Medication Administration Record [facility] [address] [place], [place] [id number] Patient: BRIJESH GABRIEL Iman Visit ID: [id number] 31y, F Weight: 108.8 kg Height/Length: 65 in BMI: 40 ALLERGIES: Silicone, Vicodin
--- NOTE | 2017-06-01 17:56 | ED MED RECONCILIATION SUMMARY ---
Patient: BRIJESH GABRIEL Medication Reconciliation Report VisitID: [id number] [place] [address] 31y, F Registration Date/Time: 06/01/2017 Weight: 108.8 kg Height/Length: 65 in. BMI: 40.0 ALLERGIES: Silicone, Vicodin The patient's Home Medications are listed below: NONE. The source(s) of the original Home Medication information: patient The following Medications were given to the patient in the Emergency Department: None. The following Medications were prescribed to the patient: Ultram 50 mg tablets: take 1-2 orally every 6 hours as needed for pain. Dispense twenty (20). No refills. Substitution is permissible. -- Stacy Rasmussen A.R.N.P.
--- NOTE | 2017-06-01 17:56 | ED MAR SUMMARY ---
..... Medication Administration Record [facility] [address] [place], [place] [id number] Patient: BRIJESH GABRIEL Iman Visit ID: [id number] 31y, F Weight: 108.8 kg Height/Length: 65 in BMI: 40 ALLERGIES: Silicone, Vicodin
== END 2017-06-01 14:50 | disposition home or self-care (01) ==
LOC: ED SRH 13:29
DX: S93.432A Sprain of tibiofibular ligament of left ankle, initial encounter (principal); W01.0XXA Fall on same level from slipping, tripping and stumbling without subsequent striking against object, initial encounter; Y93.01 Activity, walking, marching and hiking; Y92.019 Unspecified place in single-family (private) house as the place of occurrence of the external cause; Y99.8 Other external cause status; I10 Essential (primary) hypertension; F17.210 Nicotine dependence, cigarettes, uncomplicated; Z88.5 Allergy status to narcotic agent; Z91.09 Other allergy status, other than to drugs and biological substances